=== PATIENT | male | born 1985 | race Hispanic/Latino ===

== ENCOUNTER 2016-11-01 20:16 | Emergency (ER) | payer OTHER ==
[2016-11-01 20:58] VITALS: TEMP 98.8; BMI 32.1
--- NOTE | 2016-11-01 21:18 | ED PDOC ---
Arrival/HPI - General Chief Complaint: Back Pain Time Seen by Provider: 11/01/16 20:44 Historian: Patient - History of Present Illness Narrative History of Present Illness (Text): 11/01/16 21:15 31yo male with PMhx of Asthma who present with complaint of nonradiating lower back pain x 5days. States pain started while lifting object at work 5days ago. He was seen by a physician at his job and given Naprosyn. States he came to ED because the Doctor did not do any test and he don't want to go back to work until his sure his ok. He did not take any medication for the pain. Pain is usually after sitting for extended period. Denies saddle anesthesia, focal weakness, urinary/fecal incontinence, abdominal pain, any other complaint. Past Medical History - Provider Review Nursing Documentation Reviewed: Yes - Pulmonary Hx Asthma: Yes - Psychiatric Hx Substance Use: No - Anesthesia Hx Anesthesia: Yes Family/Social History - Physician Review Nursing Documentation Reviewed: Yes Family/Social History: Unknown Family HX Smoking Status: Never Smoked Hx Alcohol Use: Yes Frequency of alcohol use: Socially Hx Substance Use: No Allergies/Home Meds Allergies/Adverse Reactions: Allergies No Known Allergies Allergy (Verified 11/01/16 20:52) Review of Systems - Physician Review All systems were reviewed & negative as marked: Yes - Review of Systems Constitutional: Normal Eyes: Normal ENT: Normal Respiratory: Normal Cardiovascular: Normal Gastrointestinal: Normal Genitourinary Male: Normal Musculoskeletal: Back Pain Skin: Normal Neurological: Normal Endocrine: Normal Hemo/Lymphatic: Normal Psychiatric: Normal Physical Exam Vital Signs Reviewed: Yes Vital Signs Temp Pulse Resp BP Pulse Ox 11/01/16 20:52 98.8 F 104 H 18 124/62 99 Temperature: Afebrile Blood Pressure: Normal Pulse: Regular Respiratory Rate: Normal Appearance: Positive for: Well-Appearing, Non-Toxic, Comfortable Pain Distress: None Mental Status: Positive for: Alert and Oriented X 3 - Systems Exam Head: Present: Atraumatic, Normocephalic Pupils: Present: PERRL Extroacular Muscles: Present: EOMI Conjunctiva: Present: Normal Mouth: Present: Moist Mucous Membranes Neck: Present: Normal Range of Motion Respiratory/Chest: Present: Clear to Auscultation, Good Air Exchange. No: Respiratory Distress, Accessory Muscle Use Cardiovascular: Present: Regular Rate and Rhythm, Normal S1, S2. No: Murmurs Abdomen: Present: Normal Bowel Sounds. No: Tenderness, Distention, Peritoneal Signs Back: Present: Midline Tenderness, Paraspinal Tenderness (Lower paralumbar tenderness), Pain with Leg Raise (Left SLR) Upper Extremity: Present: Normal Inspection. No: Cyanosis, Edema Lower Extremity: Present: Normal Inspection. No: Edema Neurological: Present: GCS=15, CN II-XII Intact, Speech Normal Skin: Present: Warm, Dry, Normal Color. No: Rashes Psychiatric: Present: Alert, Oriented x 3, Normal Insight, Normal Concentration Medical Decision Making ED Course and Treatment: 11/01/16 22:30 LS xray - No acute finding Pt was ambulatory with normal gait in ED. On re evaluation his pain improved in ED with medication. Result was DW the pt. He was DC home with Flexeril. Advised to continue with Naprosyn. Referred to his PMd/ortho. TRT ED for any new or worsening symptoms - RAD Interpretation Radiology Orders: 11/01/16 21:14 LS SPINE WITH OBL > 18 YRS OLD [RAD] Stat - Medication Orders Current Medication Orders: Discontinued Medications Cyclobenzaprine HCl (Flexeril) 10 mg PO STAT STA Stop: 11/01/16 21:16 Last Admin: 11/01/16 21:49 Dose: 10 MG Ketorolac Tromethamine (Toradol) 60 mg IM STAT STA Stop: 11/01/16 21:16 Last Admin: 11/01/16 21:49 Dose: 60 MG IM Administration Charges Document 11/01/16 21:49 EKEOO (Rec: 11/01/16 21:49 EKEOO [id number]) Injection Site MAR Injection Site Left Deltoid Charges for Administration # of IM Administrations 1 Disposition/Present on Arrival - Present on Arrival Any Indicators Present on Arrival: No History of DVT/PE: No History of Uncontrolled Diabetes: No Urinary Catheter: No History of Decub. Ulcer: No History Surgical Site Infection Following: None - Disposition Have Diagnosis and Disposition been Completed?: Yes Diagnosis: Back pain Disposition: HOME/ ROUTINE Disposition Time: 22:35 Patient Plan: Discharge Condition: STABLE Discharge Instructions (ExitCare): Back Pain (ED) Additional Instructions: Follow up with your doctor Rest and apply warm compress to area return to ED for any new or worsening symptoms Prescriptions: Cyclobenzaprine [Cyclobenzaprine HCl] 10 mg PO TID #10 tab Referrals: Shay Cummings DO [Staff Provider] - Follow up with primary Forms: WORK NOTE
[2016-11-02 00:41] VITALS: BP 117/77; PULSE 93; RESP 16; O2SAT 98
--- NOTE | 2016-11-02 08:59 | RAD ---
PROCEDURE: Radiographs of the Lumbar Spine. HISTORY: back pain COMPARISON: No prior. FINDINGS: BONES: Slight leftward lumbar convexity. No listhesis. No fracture. Lumbosacral transitional elements suggested. Bilateral L5-S1 facet hypertrophic a mildly sclerotic arthrosis DISC SPACES: L5-S1 shallow disc space narrowing OTHER FINDINGS: Bold and left subcutaneous tissues at the L5 level. IVC filter apex at L2-3 level IMPRESSION: Nonspecific lumbar spine findings as above.
== END 2016-11-01 22:15 | disposition home or self-care (01) ==
LOC: ED 20:16
DX: M54.5 Low back pain (principal)
CPT/HCPCS: 72110; 96372; 99282; J1885

== ENCOUNTER 2018-10-03 16:43 | Emergency (ER) | payer SELFPAY ==
[2018-10-03 16:51] VITALS: RESP 18; TEMP 98.2; O2SAT 98; BMI 35.2
[2018-10-03] MEDS ORDERED: Sodium Chloride 0.9% 1,000 ML IV STA (17:00)
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
[2018-10-03 17:31] LABS: BASO # 0.02 K/mm3 (0.0-2.0); BASO % 0.2 % (0.0-3.0); EOS # 0.6 (0.0-0.7); EOS % 5.1 % (1.5-5.0); HEMOGLOBIN 14.5 g/dL (14.0-18.0); LYMPH # 1.8 (1.2-3.4); LYMPH % 16.5 % (22.0-35.0); MEAN CELL VOLUME 84.2 fl (80.0-105.0); MEAN CORPUSCULAR HEMOGLOBIN 27.6 pg (25.0-35.0); MEAN CORPUSCULAR HGB CONC 32.7 g/dl (31.0-37.0); MEAN PLATELET VOLUME 10.5 fl (7.0-11.0); MONO # 0.3 (0.1-0.6); MONO % 2.3 % (1.0-6.0); RBC 5.26 10^6/uL (3.5-6.1); RED CELL DISTRIBUTION WIDTH 13.2 % (11.5-14.5); WHITE BLOOD COUNT 10.9 10^3/uL (4.5-11.0)
[2018-10-03 17:44] LABS: ALB/GLOB RATIO 1.3 (1.1-1.8); ALBUMIN 4.6 g/dL (3.0-4.8); ALT/SGPT 21 U/L (7-56); AST/SGOT 24 U/L (17-59); BLOOD UREA NITROGEN 19 mg/dL (7-21); CALCIUM 9.8 mg/dL (8.4-10.5); GFR NON-AFRICAN AMERICAN > 60; LIPASE 57 U/L (23-300)
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
[2018-10-03 19:36] VITALS: BP 131/77; PULSE 78
--- NOTE | 2018-10-03 21:56 | CARD ---
APPROVED REPORT Date of service: 10/03/2018 EKG Measurement Heart [id number] <Conclusion> Normal sinus rhythm Normal ECG
== END 2018-10-03 19:37 | disposition home or self-care (01) ==
LOC: ED 16:43
DX: K29.70 Gastritis, unspecified, without bleeding (principal); K76.0 Fatty (change of) liver, not elsewhere classified; K44.9 Diaphragmatic hernia without obstruction or gangrene; R93.5 Abnormal findings on diagnostic imaging of other abdominal regions, including retroperitoneum
CPT/HCPCS: 74177; 80053; 83690; 83735; 85025; 93005; 96361; 96374; 96375; 99283; J2405; J7030; Q9967